=== PATIENT | female | born 1935 | race Two or more races ===

== ENCOUNTER 2021-07-18 00:35 | Emergency (ER) | payer MEDICARE, OTHER ==
[~2021-07-18] VITALS: Ht 157.5 cm; Wt 77.1 kg
[2021-07-18] MEDS ORDERED: DEXTROSE 50%-WATER 50 ML DISP.SYRIN IV ONE (00:39)
[2021-07-18] MEDS ORDERED: EPINEPHRINE (1:10,000) SYRINGE 1 MG/10 ML DISP.SYRIN IVP ONE (00:39)
--- NOTE | 2021-07-18 00:52 | NUR ---
BIBRA 80 FOR C/O HIGH BLOOD SUGAR AND LOW BLOOD PRESSURE W/ AN EPISODE OF N/V AT HOME. PATIENT ALERT AND ORIENTED X3. AMBULATORY WITH NON LABORED BREATHING.
--- NOTE | 2021-07-18 01:18 | NUR ---
ER PUBLIC HEALTH DENTIST @ BEDSIDE
[2021-07-18] MEDS ORDERED: IV NS 0.9% 1,000 ML BAG IV ONE (01:30)
[2021-07-18 01:59] LABS: BASOPHILS % (AUTO) 0.1 % (0.0-2.0); HEMATOCRIT 35 % (33-45); HEMOGLOBIN 11.7 g/dL (11.5-14.8); LYMPHOCYTES # (AUTO) 0.2 K/uL (0.8-4.8); LYMPHOCYTES % (AUTO) 1.7 % (20.0-44.0); MEAN CORPUSCULAR HGB CONC 33 g/dl (31.0-36.0); MEAN CORPUSCULAR VOLUME 92 fL (82-100); MONOCYTES # (AUTO) 0.5 K/uL (0.1-1.30); MONOCYTES % (AUTO) 4.6 % (2.0-12.0); NEUTROPHILS # (AUTO) 9.9 K/uL (1.8-8.9); NEUTROPHILS % (AUTO) 93.6 % (43.0-81.0); PLATELET COUNT (AUTO) 143 K/uL (150-450); RED BLOOD CELL COUNT(AUTO) 3.85 MIL/uL (4.0-5.2); WHITE BLOOD COUNT (AUTO) 10.6 K/uL (4.3-11.0)
--- NOTE | 2021-07-18 02:12 | NUR ---
TYPESETTING MACHINE TENDER AT PT'S BEDSIDE
--- NOTE | 2021-07-18 02:36 | NUR ---
BS 315
[2021-07-18 02:38] LABS: CARBON DIOXIDE 15 mmol/L (21-32); CHLORIDE 98 mmol/L (98-107); CREATININE 1.2 mg/dL (0.6-1.3); POTASSIUM 4.2 mmol/L (3.5-5.1); SODIUM SERUM 128 mmol/L (136-145); UREA NITROGEN, BLOOD 17 mg/dL (7-18)
[2021-07-18 02:47] LABS: GLUCOSE 369 mg/dL (74-106)
[2021-07-18 02:50] LABS: ALANINE AMINOTRANSFERASE 251 U/L (12-78); ALBUMIN 2.8 g/dL (3.4-5.0); ALKALINE PHOSPHATASE 98 U/L (46-116); ASPARTATE AMINOTRANSFERASE 311 U/L (15-37); BILIRUBIN,DIRECT 2.3 mg/dL (0.0-0.2); BILIRUBIN,TOTAL 4.3 mg/dL (0.2-1.0); TOTAL PROTEIN, SERUM 6.3 g/dL (6.4-8.2)
[2021-07-18] MEDS ORDERED: CEFEPIME 1 GM VIAL ONE (02:53)
[2021-07-18] MEDS ORDERED: VANCOMYCIN 1 GM VIAL ONE (02:53)
--- NOTE | 2021-07-18 02:54 | NUR ---
MRSA SWAB COLLECTED AND SENT TO LAB. PATIENT'S BELONGINGS LIST DONE.
[2021-07-18] MEDS ORDERED: VANCOMYCIN 1 GM in IV D5W 250 ML IV ONE (03:00)
[2021-07-18] MEDS ORDERED: CEFEPIME 1 GM in IV D5W 50 ML IV ONE (03:00)
[2021-07-18] MEDS ORDERED: IOHEXOL-300 100 ML VIAL IV ONE (03:58)
--- NOTE | 2021-07-18 04:52 | NUR ---
PATIENT BACK FROM CT.
[2021-07-18] MEDS ORDERED: Z GUARD REMEDY 4 OZ OINT TP PRN (05:00)
[2021-07-18] MEDS ORDERED: ONDANSETRON HCL/PF 4 MG/2 ML VIAL IVP PRN (05:00)
[2021-07-18] MEDS ORDERED: ACETAMINOPHEN 650 MG/SUPP.RECT RC PRN (05:00)
[2021-07-18] MEDS ORDERED: IV NS 0.9% 1,000 ML IV PRN (05:00)
--- NOTE | 2021-07-18 05:00 | NUR ---
DR BRADFORD ON THE PHONE WITH DR FINLEY
--- NOTE | 2021-07-18 05:07 | NUR ---
DR BRADFORD ON THE PHONE WITH ALEJANDRO CHUA
[2021-07-18] MEDS ORDERED: IV NS 0.9% 1,000 ML IV ONE (05:30)
--- NOTE | 2021-07-18 06:45 | NUR ---
AUTO MACHINIST AT BEDSIDE, PATIENT HAVING A DEMENTIA EPISODE, REFUSING ALL CARE. AUTO MACHINIST TO BE CALLED LATER IN THE DAY WHEN PATIENT IS BETTER OR MEDICATED. (PLEASE CALL [facility]LE[facility] MEDICINE [facility]TENS[facility] #[id number] FOR AUTO MACHINIST TO COME BACK)
[2021-07-18 08:08] VITALS: BP 106/63
--- NOTE | 2021-07-18 08:24 | NUR ---
115-TD-1. PRIMARY RN AWARE.
--- NOTE | 2021-07-18 08:33 | NUR ---
ATTEMPTED TO GIVE REPORT, NURSE IS PASSING MEDS, WILL CALL AGAIN IN 10MINS
--- NOTE | 2021-07-18 08:58 | NUR ---
REPORT GIVEN TO CIERRA VILLASENOR FOR RADU
[2021-07-18] MEDS ORDERED: PANTOPRAZOLE 40 MG VIAL IV SCH (09:00)
[2021-07-18] MEDS ORDERED: ATEN25TA PO (09:02)
[2021-07-18] MEDS ORDERED: PIPERACILLIN /TAZOBACTAM 3.375 G in IV D5W 50 ML IV SCH (09:02)
[2021-07-18] MEDS ORDERED: CHOL100043 PO (09:02)
[2021-07-18] MEDS ORDERED: RAMI2.5C55 PO (09:02)
[2021-07-18] MEDS ORDERED: OMEP20CA15 PO (09:02)
[2021-07-18] MEDS ORDERED: VITA1TAB56 PO (09:02)
[2021-07-18] MEDS ORDERED: METF-441 PO (09:02)
[2021-07-18] MEDS ORDERED: ASPI-1420 PO (09:02)
[2021-07-18] MEDS ORDERED: MEMA10TA PO (09:02)
[2021-07-18] MEDS ORDERED: SITA100T PO (09:02)
[2021-07-18] MEDS ORDERED: LEVO50TA8 PO (09:02)
--- NOTE | 2021-07-18 09:05 | NUR ---
RT CODE BLUE STARTED INTUBATED BY DR SIMMS WITH 7.5CM AT 24CM, LIP, COLOR CHANGE ON END TIDAL BILATERAL CHEST RISE, CONTINUED BAGGING WITH ETT TUBE PLACED
--- NOTE | 2021-07-18 09:32 | NUR ---
[facility] CASE NUMBER IS [id number] REP NAME IS HUDSON
--- NOTE | 2021-07-18 09:39 | NUR ---
SON MAURICIO IS MADE AWARE OF PATIENT`S .
== END 2021-07-18 09:01 ==
LOC: ER 00:38 → TELE1 08:27 → UNDOADMIN 08:27
DX: A41.9 Sepsis, unspecified organism (principal); K80.42 Calculus of bile duct with acute cholecystitis without obstruction; R11.2 Nausea with vomiting, unspecified; Z20.822 Contact with and (suspected) exposure to COVID-19; J98.11 Atelectasis; F03.90 Unspecified dementia, unspecified severity, without behavioral disturbance, psychotic disturbance, mood disturbance, and anxiety; E11.65 Type 2 diabetes mellitus with hyperglycemia; I95.9 Hypotension, unspecified; R00.0 Tachycardia, unspecified
CPT/HCPCS: 31500; 36415; 71045; 71260; 74177; 76705; 80048; 80076; 82962; 83605 ×2; 83690; 83880; 84484 ×2; 85025; 85730; 87040 ×2; 87077; 87081; 87186; 87426; 92950; 93005; 96360; 96361; 96365; 96367; 99291; 99292; J0171; J0692; J2543; J3370; J7030; J7060 ×3; Q9967; C9803